=== PATIENT | female | born 1970 | race Caucasian/White ===

== ENCOUNTER → 2018-05-25 13:50 | Outpatient (CLI) | payer MEDICAID, SELFPAY ==
[2018-05-26 13:28] LABS: Amphetamine/Metha Screen,Urine Negative ng/mL (<1000); Barbiturates Screen,Urine Negative ng/mL (<200); Benzodiazepines Screen,Urine Negative ng/mL (<200); Cannabinoid Screen,Urine Negative ng/mL (<50); Cocaine Screen,Urine Negative ng/mL (<300); Methadone Screen,Urine Negative ng/mL (<300); Opiate Screen,Urine Negative ng/mL (<300); Phencyclidine Screen,Urine Negative ng/mL (<25)
== END ==
PROVIDERS: Visit Provider Internal Medicine
DX: I27.20 Pulmonary hypertension, unspecified (principal); I11.9 Hypertensive heart disease without heart failure; F17.200 Nicotine dependence, unspecified, uncomplicated; I27.21 Secondary pulmonary arterial hypertension; J44.9 Chronic obstructive pulmonary disease, unspecified; R94.31 Abnormal electrocardiogram [ECG] [EKG]; Z99.81 Dependence on supplemental oxygen
CPT/HCPCS: 80305

== ENCOUNTER → 2019-05-01 09:34 | Outpatient (CLI) | payer MEDICAID, SELFPAY ==
[2019-05-01 13:05] LABS: Amphetamine/Metha Screen,Urine Negative ng/mL (<1000); Barbiturates Screen,Urine Negative ng/mL (<200); Benzodiazepines Screen,Urine Positive ng/mL (<200); Cannabinoid Screen,Urine Negative ng/mL (<50); Cocaine Screen,Urine Negative ng/mL (<300); Methadone Screen,Urine Negative ng/mL (<300); Opiate Screen,Urine Negative ng/mL (<300); Phencyclidine Screen,Urine Negative ng/mL (<25)
== END ==
PROVIDERS: Visit Provider Internal Medicine
DX: F41.9 Anxiety disorder, unspecified (principal); I11.9 Hypertensive heart disease without heart failure; R06.02 Shortness of breath; I27.21 Secondary pulmonary arterial hypertension; F17.200 Nicotine dependence, unspecified, uncomplicated; Z99.81 Dependence on supplemental oxygen
CPT/HCPCS: 80305

== ENCOUNTER → 2019-12-25 10:56 | Outpatient (CLI) | payer MEDICAID, SELFPAY ==
[2019-12-25 11:35] LABS: Barbiturates Screen,Urine Negative ng/ml (<200); Benzodiazepines Screen,Urine Positive ng/ml (<200)
[2019-12-25 11:36] LABS: Amphetamine/Metha Screen,Urine Negative ng/ml (<1000)
[2019-12-25 11:37] LABS: Cannabinoid Screen,Urine Negative ng/ml (<50); Cocaine Screen,Urine Negative ng/ml (<300)
[2019-12-25 11:38] LABS: Methadone Screen,Urine Negative ng/ml (<300)
[2019-12-25 11:39] LABS: Opiate Screen,Urine Positive ng/ml (<300); Phencyclidine Screen,Urine Negative ng/ml (<25)
== END ==
PROVIDERS: Visit Provider Internal Medicine
DX: I11.9 Hypertensive heart disease without heart failure (principal); R06.02 Shortness of breath; I27.21 Secondary pulmonary arterial hypertension; F17.200 Nicotine dependence, unspecified, uncomplicated; F41.9 Anxiety disorder, unspecified; Z99.81 Dependence on supplemental oxygen
CPT/HCPCS: 80305

== ENCOUNTER → 2020-11-27 12:52 | Outpatient (CLI) | payer MEDICAID, SELFPAY ==
[2020-11-27 14:54] LABS: Benzodiazepines Screen,Urine Positive ng/ml (<200)
[2020-11-27 14:55] LABS: Amphetamine/Metha Screen,Urine Negative ng/ml (<1000); Barbiturates Screen,Urine Negative ng/ml (<200)
[2020-11-27 14:56] LABS: Cannabinoid Screen,Urine Negative ng/ml (<50); Cocaine Screen,Urine Negative ng/ml (<300)
[2020-11-27 14:58] LABS: Opiate Screen,Urine Negative ng/ml (<300); Phencyclidine Screen,Urine Negative ng/ml (<25)
[2020-11-27 15:17] LABS: Methadone Screen,Urine Negative ng/ml (<300)
== END ==
PROVIDERS: Visit Provider Internal Medicine
DX: Z79.899 Other long term (current) drug therapy (principal)
CPT/HCPCS: 80305

== ENCOUNTER → 2021-11-10 12:20 | Outpatient (CLI) | payer MEDICAID, SELFPAY ==
[2021-11-10 13:35] LABS: Benzodiazepines Screen,Urine Positive ng/ml (<200)
[2021-11-10 13:36] LABS: Amphetamine/Metha Screen,Urine Negative ng/ml (<1000); Barbiturates Screen,Urine Negative ng/ml (<200)
[2021-11-10 13:37] LABS: Cannabinoid Screen,Urine Negative ng/ml (<50)
[2021-11-10 13:38] LABS: Cocaine Screen,Urine Negative ng/ml (<300); Methadone Screen,Urine Negative ng/ml (<300)
[2021-11-10 13:39] LABS: Opiate Screen,Urine Negative ng/ml (<300)
[2021-11-10 13:40] LABS: Phencyclidine Screen,Urine Negative ng/ml (<25)
== END ==
PROVIDERS: Visit Provider Internal Medicine
DX: Z79.899 Other long term (current) drug therapy (principal)
CPT/HCPCS: 80305

== ENCOUNTER → 2023-01-19 12:21 | Outpatient (CLI) | payer MEDICAID, SELFPAY ==
[2023-01-19 15:03] LABS: Benzodiazepines Screen,Urine Positive ng/ml (<200)
[2023-01-19 15:05] LABS: Cannabinoid Screen,Urine Negative ng/ml (<50)
[2023-01-19 15:06] LABS: Cocaine Screen,Urine Negative ng/ml (<300)
[2023-01-19 15:07] LABS: Methadone Screen,Urine Negative ng/ml (<300); Opiate Screen,Urine Negative ng/ml (<300)
[2023-01-19 15:08] LABS: Phencyclidine Screen,Urine Negative ng/ml (<25)
[2023-01-19 15:23] LABS: Barbiturates Screen,Urine Negative ng/ml (<200)
[2023-01-19 15:24] LABS: Amphetamine/Metha Screen,Urine Negative ng/ml (<1000)
== END ==
PROVIDERS: PCP Nurse Practitioner Family; Visit Provider Internal Medicine
DX: F41.9 Anxiety disorder, unspecified (principal)
CPT/HCPCS: 80305

== ENCOUNTER 2023-10-20 12:30 | Outpatient (CLI) | payer MEDICAID, SELFPAY ==
[2023-10-20 13:01] LABS: Amphetamine/Metha Screen,Urine Negative ng/ml (<1000)
[2023-10-20 13:02] LABS: Barbiturates Screen,Urine Negative ng/ml (<200)
[2023-10-20 13:03] LABS: Benzodiazepines Screen,Urine Positive ng/ml (<200); Cannabinoid Screen,Urine Negative ng/ml (<50)
[2023-10-20 13:04] LABS: Cocaine Screen,Urine Negative ng/ml (<300)
[2023-10-20 13:05] LABS: Methadone Screen,Urine Negative ng/ml (<300); Opiate Screen,Urine Negative ng/ml (<300)
[2023-10-20 13:06] LABS: Phencyclidine Screen,Urine Negative ng/ml (<25)
== END 2023-10-20 23:59 | disposition home or self-care (01) ==
LOC: LAB 12:31
PROVIDERS: Visit Provider Internal Medicine
DX: Z51.81 Encounter for therapeutic drug level monitoring (principal); Z79.899 Other long term (current) drug therapy
CPT/HCPCS: 80307